=== PATIENT | female | born 1960 | race Two or more races ===

== ENCOUNTER 2019-09-16 22:51 | Emergency (ER) | payer OTHER ==
[~2019-09-16] VITALS: Ht 152.4 cm; Wt 72.6 kg
[2019-09-16] MEDS ORDERED: DEPAKENE250 MG (23:24)
[2019-09-16] MEDS ORDERED: ALTACE5 MG (23:24)
== END 2019-09-17 09:52 | disposition home or self-care (01) ==
LOC: ER 22:51
DX: R41.0 Disorientation, unspecified (principal); I10 Essential (primary) hypertension